=== PATIENT | male | born 1940 | race Caucasian/White ===

== ENCOUNTER 2024-10-07 12:25 | Inpatient (IN) ==
[2024-10-07 13:45] LABS: Urine Appearance Extra Turbid; Urine Bilirubin Negative (Negative); Urine Blood Negative (Negative); Urine Color Yellow; Urine Glucose Negative (Negative); Urine Ketones Negative (Negative); Urine Nitrite Negative (Negative); Urine Protein Trace (Negative); Urine Specific Gravity 1.033 (1.002-1.030); Urine Urobilinogen Negative (Negative); Urine pH 5.5 (5.0-8.0)
[2024-10-07] MEDS: Magnesium CITRATE LIQ 300 ML BTL PO ONE (15:48)
[2024-10-07] MEDS: Sodium Phosphate ADULT ENEMA 133 ML BTL PR ONE (16:07)
[2024-10-07 16:23] LABS: ABS Basophils 0.1 10^3/uL (0.0-0.1); ABS Eosinophils 0.2 10^3/uL (0.0-0.5); ABS Lymphocytes 0.8 10^3/uL (1.0-4.8); ABS Monocytes 0.9 10^3/uL (0.0-1.1); Anisocytosis 2+; Eosinophil % 2.2 %; Giant Platelets Present; Hematocrit 29.7 % (38-53); Hemoglobin 9.7 g/dL (13.2-16.3); Lymphocyte % 9.2 %; Mean Corpuscular Hemoglobin 22.7 pg (27-33); Mean Corpuscular Hgb Conc 32.5 g/dL (31-36); Mean Platelet Volume 8.2 fL (7.5-11.2); Microcytosis 2+; Platelet Count 477 10^3/uL (150-450); Polychromasia 1+; Red Blood Count 4.25 10^6/uL (4.06-5.63); Red Cell Distribution Width 18.4 % (12-17); Target Cells 1+
[2024-10-07 16:35] LABS: Albumin 3.1 g/dL (3.5-5.7); Albumin/Globulin Ratio 1.2 (1-3); C Reactive Protein 57.65 mg/L (<8.01); Calcium 8.2 mg/dL (8.6-10.3); Creatinine, Serum 0.88 mg/dL (0.67-1.17); Globulin 2.5 g/dL (2-4); Potassium 4.4 mmol/L (3.5-5.0); Total Bilirubin 0.4 mg/dL (0.2-1.0); Total Protein 5.6 g/dL (6.4-8.9); eGFR CKD-EPI 85.9 (>60)
[2024-10-07] MEDS: Iohexol 350 (CONTRAST) 500 ML MDV IV ONE (16:55)
[2024-10-07] MEDS: Pantoprazole VIAL 40 MG VIAL IV SCH (20:59)
[2024-10-08 03:43] LABS: Body Fluid Mono 64 %; Body Fluid Other Cells 8; Body Fluid Total Cells Counted 200
[2024-10-08 03:44] LABS: Body Fluid Appearance Cloudy; Body Fluid Color Yellow; Body Fluid Source Peritonial Fluid
[2024-10-08 06:30] LABS: ABS Basophils 0.1 10^3/uL (0.0-0.1); ABS Eosinophils 0.2 10^3/uL (0.0-0.5); ABS Lymphocytes 0.8 10^3/uL (1.0-4.8); ABS Monocytes 0.8 10^3/uL (0.0-1.1); ABS Neutrophils 5.4 10^3/uL (1.5-7.6); Eosinophil % 2.5 %; Hematocrit 27.9 % (38-53); Hemoglobin 8.8 g/dL (13.2-16.3); Lymphocyte % 11.4 %; Mean Corpuscular Hemoglobin 22.1 pg (27-33); Mean Corpuscular Hgb Conc 31.7 g/dL (31-36); Mean Corpuscular Volume 69.8 fL (80-97); Mean Platelet Volume 8.3 fL (7.5-11.2); Platelet Count 444 10^3/uL (150-450); Red Blood Count 3.99 10^6/uL (4.06-5.63); Red Cell Distribution Width 18.1 % (12-17); White Blood Count 7.3 10^3/uL (3.6-10.2)
[2024-10-08 07:11] LABS: Anion Gap 9 mmol/L (2-16); Blood Urea Nitrogen 20 mg/dL (6-24); CO2 Carbon Dioxide 23 mmol/L (22-32); Calcium 7.8 mg/dL (8.6-10.3); Chloride 106 mmol/L (101-111); Creatinine, Serum 0.88 mg/dL (0.67-1.17); Glucose 96 mg/dL (70-100); Sodium 138 mmol/L (135-145); eGFR CKD-EPI 85.9 (>60)
[2024-10-08] MEDS: NEPAFENAC 0.3% RIGHT EYE SCH (09:23)
[2024-10-08] MEDS ORDERED: Sulfur Hexaflouride MICROSPHR 25 MG VIAL IV PRN (09:34)
[2024-10-08 13:24] LABS: % Iron Saturation 7 % (15-55); .Transferrin 216 mg/dL (203-362); Iron < 20 ug/dL (50-212); Total Iron Binding Capacity 302 mcg/dL (250-450); Unsaturated Iron Binding 282 ug/dL
[2024-10-08 13:49] LABS: Ferritin 20.9 ng/mL (24-336)
[2024-10-08] MEDS: PEG 3000 GI LAVAGE 1 GALLON PO ONE (17:19)
[2024-10-08 23:21] LABS: Hepatitis C Antibody Negative (Negative)
[2024-10-09 06:52] LABS: ABS Basophils 0.1 10^3/uL (0.0-0.1); ABS Eosinophils 0.3 10^3/uL (0.0-0.5); ABS Monocytes 0.7 10^3/uL (0.0-1.1); ABS Neutrophils 5.4 10^3/uL (1.5-7.6); Eosinophil % 4.1 %; Hematocrit 27.6 % (38-53); Lymphocyte % 13.6 %; Mean Corpuscular Hemoglobin 22.6 pg (27-33); Mean Corpuscular Hgb Conc 32.6 g/dL (31-36); Mean Corpuscular Volume 69.4 fL (80-97); Mean Platelet Volume 8.3 fL (7.5-11.2); Platelet Count 454 10^3/uL (150-450); Red Blood Count 3.99 10^6/uL (4.06-5.63); Red Cell Distribution Width 18.5 % (12-17); White Blood Count 7.5 10^3/uL (3.6-10.2)
[2024-10-09 06:55] LABS: Calcium 7.5 mg/dL (8.6-10.3); Creatinine, Serum 0.9 mg/dL (0.67-1.17); Magnesium 2.2 mg/dL (1.9-2.7); Potassium 4.1 mmol/L (3.5-5.0); eGFR CKD-EPI 85.3 (>60)
[2024-10-09] MEDS: cefTRIAXone 1 gm/50 mL D5W 1 GM/50 ML BAG IV SCH (14:34)
[2024-10-09] MEDS ORDERED: fentaNYL 100 mcg/2 ml 50 MCG/ML VIAL ONE (16:13)
[2024-10-09] MEDS ORDERED: Midazolam 10 mg/10 ml VIAL 1 mg/ml 10 ml VIAL (10 mg) ONE (16:13)
[2024-10-10 09:58] LABS: Lactate Dehydrogenase, BF 249 U/L
[2024-10-10 11:49] LABS: Albumin, BF 2.2 g/dL; Fluid Type, Albumin PERITONEAL FLUID; Fluid Type, Protein, Total PERITONEAL FLUID; Glucose, BF 95 mg/dL; Total Protein, BF 3.8 g/dL
[2024-10-11 11:57] LABS: Hematocrit 30.4 % (38-53); Hemoglobin 9.8 g/dL (13.2-16.3); Mean Corpuscular Hemoglobin 22.5 pg (27-33); Mean Corpuscular Hgb Conc 32.3 g/dL (31-36); Mean Corpuscular Volume 69.7 fL (80-97); Mean Platelet Volume 7.9 fL (7.5-11.2); Platelet Count 526 10^3/uL (150-450); Red Blood Count 4.35 10^6/uL (4.06-5.63); Red Cell Distribution Width 18.5 % (12-17); White Blood Count 9.7 10^3/uL (3.6-10.2)
[2024-10-11 12:21] LABS: ABS Basophils 0.1 10^3/uL (0.0-0.1); ABS Eosinophils 0.2 10^3/uL (0.0-0.5); ABS Monocytes 1.1 10^3/uL (0.0-1.1); ABS Neutrophils 7.2 10^3/uL (1.5-7.6); Anisocytosis 2+; Eosinophil % 2.2 %; Lymphocyte % 10.6 %
[2024-10-11 12:25] LABS: Albumin 2.7 g/dL (3.5-5.7); Albumin/Globulin Ratio 1.2 (1-3); Calcium 7.7 mg/dL (8.6-10.3); Creatinine, Serum 0.94 mg/dL (0.67-1.17); Globulin 2.3 g/dL (2-4); Potassium 4.4 mmol/L (3.5-5.0); Total Bilirubin 0.3 mg/dL (0.2-1.0); eGFR CKD-EPI 80.9 (>60)
[2024-10-11] MEDS: Iohexol 300 (CONTRAST) 10 ML SDV IV ONE (14:31)
[2024-10-12 06:28] LABS: ABS Basophils 0.1 10^3/uL (0.0-0.1); ABS Eosinophils 0.5 10^3/uL (0.0-0.5); ABS Lymphocytes 1.3 10^3/uL (1.0-4.8); ABS Monocytes 1.2 10^3/uL (0.0-1.1); ABS Neutrophils 7.2 10^3/uL (1.5-7.6); Eosinophil % 4.6 %; Hematocrit 29.1 % (38-53); Hemoglobin 9.4 g/dL (13.2-16.3); Lymphocyte % 12.5 %; Mean Corpuscular Hemoglobin 22.6 pg (27-33); Mean Corpuscular Hgb Conc 32.4 g/dL (31-36); Mean Corpuscular Volume 69.6 fL (80-97); Mean Platelet Volume 7.9 fL (7.5-11.2); Platelet Count 467 10^3/uL (150-450); Red Blood Count 4.18 10^6/uL (4.06-5.63); Red Cell Distribution Width 18.5 % (12-17); White Blood Count 10.3 10^3/uL (3.6-10.2)
[2024-10-12] MEDS: Al Hydrox/Mg Hydrox/Simet LIQ 30 ML UDC PO ONE (06:37)
[2024-10-12 07:10] LABS: Calcium 7.7 mg/dL (8.6-10.3); Creatinine, Serum 0.88 mg/dL (0.67-1.17); Magnesium 2.1 mg/dL (1.9-2.7); Potassium 4.6 mmol/L (3.5-5.0); eGFR CKD-EPI 85.9 (>60)
[2024-10-12 07:53] LABS: Body Fluid Total Nucleated 265 /mcL
[2024-10-12 12:27] LABS: Body Fluid Appearance Cloudy; Body Fluid Color Yellow; Body Fluid Source Pleural Fluid
[2024-10-12 12:42] LABS: Body Fluid Total Nucleated 1299 /mcL
[2024-10-12 13:11] LABS: Body Fluid Mono 50 %; Body Fluid Other Cells 2; Body Fluid Total Cells Counted 200
[2024-10-12] MEDS: Ferric Gluconate IV 250 MG in NS 0.9% 250 ml 200 ML IVPB SCH (14:17)
[2024-10-13 06:29] LABS: Hemoglobin 9.1 g/dL (13.2-16.3); Mean Corpuscular Hemoglobin 21.9 pg (27-33); Mean Corpuscular Hgb Conc 31.4 g/dL (31-36); Mean Corpuscular Volume 69.8 fL (80-97); Mean Platelet Volume 8.4 fL (7.5-11.2); Platelet Count 468 10^3/uL (150-450); Red Blood Count 4.16 10^6/uL (4.06-5.63); Red Cell Distribution Width 18.3 % (12-17)
[2024-10-13 06:30] LABS: Calcium 8.3 mg/dL (8.6-10.3); Creatinine, Serum 1.01 mg/dL (0.67-1.17); Potassium 4.6 mmol/L (3.5-5.0); eGFR CKD-EPI 74.3 (>60)
[2024-10-13 12:59] LABS: Lactate Dehydrogenase, BF 216 U/L
[2024-10-13 16:13] LABS: Fluid Type: PLEURAL FLUID; Triglycerides (BF) 59 mg/dL
[2024-10-13 16:14] LABS: Albumin, BF 1.8 g/dL; Fluid Type, Albumin PLEURAL FLUID; Fluid Type, Amylase PLEURAL FLUID; Fluid Type, Protein, Total PLEURAL FLUID; Fluid Type: PLEURAL FLUID; Glucose, BF 120 mg/dL
[2024-10-14 06:48] LABS: Calcium 8.4 mg/dL (8.6-10.3); Creatinine, Serum 0.95 mg/dL (0.67-1.17); Potassium 4.7 mmol/L (3.5-5.0); eGFR CKD-EPI 79.9 (>60)
[2024-10-14 07:16] LABS: Hematocrit 28.7 % (38-53); Hemoglobin 9.2 g/dL (13.2-16.3); Mean Corpuscular Hgb Conc 31.9 g/dL (31-36); Mean Corpuscular Volume 68.8 fL (80-97); Mean Platelet Volume 8.2 fL (7.5-11.2); Platelet Count 518 10^3/uL (150-450); Red Blood Count 4.17 10^6/uL (4.06-5.63); Red Cell Distribution Width 18.7 % (12-17); White Blood Count 8.5 10^3/uL (3.6-10.2)
[2024-10-14] MEDS: Enoxaparin 100 MG/ML SYR SUBCUT ONE (11:30)
[2024-10-15] MEDS: Enoxaparin 100 MG/ML SYR SUBCUT ONE (09:55)
[2024-10-15] MEDS: PEG 3000 GI LAVAGE 1 GALLON PO ONE (15:17)
[2024-10-15] MEDS: Ondansetron 4 mg VIAL 2 MG/ML 2 ml VIAL IV PRN (17:15)
[2024-10-15] MEDS ORDERED: Bupivacaine 0.25% EPI 200,000 30 ML SDV ONE (23:20)
[2024-10-16 06:25] LABS: Hematocrit 28.7 % (38-53); Hemoglobin 9.2 g/dL (13.2-16.3); Mean Corpuscular Hemoglobin 22.3 pg (27-33); Mean Corpuscular Hgb Conc 32.1 g/dL (31-36); Mean Corpuscular Volume 69.5 fL (80-97); Mean Platelet Volume 8.1 fL (7.5-11.2); Platelet Count 528 10^3/uL (150-450); Red Blood Count 4.13 10^6/uL (4.06-5.63); Red Cell Distribution Width 18.6 % (12-17); White Blood Count 7.7 10^3/uL (3.6-10.2)
[2024-10-16 06:44] LABS: Calcium 8.1 mg/dL (8.6-10.3); Creatinine, Serum 0.94 mg/dL (0.67-1.17); Potassium 4.5 mmol/L (3.5-5.0); eGFR CKD-EPI 80.9 (>60)
[2024-10-16] MEDS ORDERED: Famotidine IV 10 MG/ML 2 ml VIAL (20 mg) ONE (06:55)
[2024-10-16] MEDS ORDERED: Propofol 10 MG/ML 20 ML BTL ONE (06:56)
[2024-10-16] MEDS ORDERED: Lidocaine 2% PF 5 ML VIAL ONE (06:56)
[2024-10-16] MEDS ORDERED: Rocuronium 50 mg VIAL 10 mg/ml 5 ml VIAL (50 mg) ONE (06:56)
[2024-10-16] MEDS: Famotidine IV 10 MG/ML 2 ml VIAL (20 mg) IV ONE (06:57)
[2024-10-16] MEDS ORDERED: fentaNYL 100 mcg/2 ml 50 MCG/ML VIAL ONE (07:57)
[2024-10-16] MEDS ORDERED: Naloxone 0.4 mg VIAL 0.4 mg/ml 1 ml VIAL IV PRN (08:57)
[2024-10-16] MEDS ORDERED: fentaNYL 100 mcg/2 ml 50 MCG/ML VIAL IV PRN (08:57)
[2024-10-16] MEDS: Pantoprazole VIAL 40 MG VIAL IV SCH (11:22)
[2024-10-16] MEDS: ceFOXitin 2 GM in NS 0.9% 50 ML IVPB ONE (11:22)
[2024-10-16 12:13] VITALS: BP 111/88
== END 2024-10-16 16:57 | disposition home or self-care (01) | DRG 374 ==
LOC: EDHOLD 12:25 → ED 12:25 → SUATTDRO 20:20 → MED 23:01 → SSU 10-16 10:27
PROVIDERS: ADMIT Hospitalist; ATTEND Student in an Organized Health Care Education/Training Program